=== PATIENT | female | born 1950 | race Caucasian/White ===

== ENCOUNTER 2017-06-09 09:55 | Inpatient (IN) | payer OTHER, BC ==
[~2017-06-09] VITALS: Ht 157.5 cm; Wt 71.3 kg
[~2017-06-09 09:55] MED LIST: ADCIRCA20 MG PO; ALLOPURINOL100 MG PO; AUGMENTIN500 MG PO; AUGMENTIN875 MG PO; CARAFATE100 MG/ML PO; COLACE100 MG PO; COLCRYS0.6 MG PO; COUMADIN4 MG PO; CRESTOR5 MG PO; CYANOCOBALAM1000 MCG PO; DIOVAN160 MG PO; DIOVAN80 MG PO; EXJADE500 MG PO; FISH OIL 1,2001 EAC4 PO; FLONASE ALLERG9.9 ML BOTH NARES; GLUCOPHAGE500 MG PO; GLUCOTROL10 MG PO; HYDROCHLOROTH12.5 M3 PO; HYDROCHLOROTHIA25 MG PO; JADENU360 MG PO; JADENU90 MG PO; LANTUS 10100 UNITS/ SC; LOPRESSOR25 MG PO; MARTINIC1 EACH PO; METOPROLOL SUCC25 MG PO; NEXIUM40 MG PO; OXYCODONE HCL5 MG PO; OXYCODONE5 MG PO; OXYCONTIN20 MG PO; OXYCONTIN40 MG PO; PAXIL40 MG PO; PROCRIT40000 UNI1 SC; ROCALTROL0.25 MCG PO; SYNRIBO3.5 MG SC; TASIGNA200 MG PO; TYLENOL REGULA325 MG PO; Tylenol Regular Stre PO; VALIUM5 MG PO; VITAMIN B12-FO1 EACH PO; VITAMIN D250000 UNIT PO; Zithromax PO
[2017-06-09 10:49] LABS: CHLORIDE 106 mEq/L (99-109); POTASSIUM 3.9 mEq/L (3.7-5.4); SODIUM 136 mEq/L (136-147)
[2017-06-09 10:50] LABS: GLUCOSE 174 mg/dL (70-99)
[2017-06-09 10:54] LABS: CREATININE 1.5 mg/dL (0.6-1.3); GFR ESTIMATE (CALCULATED) 37 mL/min/
[2017-06-09 10:55] LABS: BASOPHIL (%) 0.5 % (0-1); EOSINOPHIL (%) 3.1 % (0-5); EOSINOPHIL COUNT 0.1 K/uL (0-0.3); HEMATOCRIT 21.4 % (36.0-46.0); HEMOGLOBIN 7.5 G/DL (11.9-15.5); LYMPHOCYTE (%) 10.9 % (15-42); LYMPHOCYTE COUNT 0.2 K/uL (1.0-2.8); MCH 35.4 PG (29.0-34.0); MCV 100.9 FL (83-99); MONOCYTE (%) 2.6 % (3-12); MONOCYTE COUNT 0.1 K/uL (0-0.8); NEUTROPHIL (%) 81.9 % (45-76); NEUTROPHIL COUNT 1.6 K/uL (1.8-6.4); PLATELET COUNT 51 K/uL (156-360); RBC DIS.WIDTH-SD 62.6 % (39-53); RED BLOOD COUNT 2.12 M/uL (3.80-5.20); UREA NITROGEN (BUN) 31 mg/dL (9-23); WHITE BLOOD COUNT 1.9 K/uL (4.1-10.2)
[2017-06-09 10:57] LABS: TROP-I INTERPRETATION NEGATIVE; TROPONIN-I 0.02 ng/mL (0.0-0.30)
[2017-06-09 11:02] LABS: INTER. NORMALIZED RATIO 2.7; PTT 38.2 SEC (25-37)
[2017-06-09 11:24] LABS: APPEARANCE CLEAR ((CLEAR)); BILIRUBIN NEGATIVE; BLOOD SMALL; COLOR YELLOW ((YELLOW)); GLUCOSE (STRIP) NEGATIVE; KETONES NEGATIVE; LEUKOCYTES SMALL; NITRITE NEGATIVE; PROTEIN (STRIP) 100; SPECIFIC GRAVITY 1.015 (1.000-1.030); UROBILINOGEN 0.2 MG/DL (0.2-1.0)
[2017-06-09 11:34] LABS: BACTERIA RARE /HPF; EPITHELIAL CELLS 1+ /HPF; HYALINE CASTS 0-5 /LPF; MUCUS NONE SEEN /LPF; RED BLOOD CELLS NONE SEEN /HPF (0-5); UCUL ADDED? YES
[2017-06-09] MEDS ORDERED: COUMADIN2 MG PO (19:47)
[2017-06-09] MEDS ORDERED: ZOFRAN8 MG PO ×2 (19:48→19:50)
[2017-06-09] MEDS ORDERED: CATAPRES0.1 MG PO (19:50)
[2017-06-09] MEDS ORDERED: COLCRYS0.6 MG PO (19:51)
[2017-06-09] MEDS ORDERED: AZELASTINE137 MCG/0. BOTH NARES (19:51)
[2017-06-09 21:44] LABS: HEMATOCRIT 17.3 % (36.0-46.0); MCH 35.8 PG (29.0-34.0); MCHC 35.8 G/DL (30.0-36.0); RBC DIS.WIDTH-SD 62.1 % (39-53); RED BLOOD COUNT 1.73 M/uL (3.80-5.20)
[2017-06-09 21:56] VITALS: BP 190/76
[2017-06-09 22:37] LABS: HEMOGLOBIN 6.2 G/DL (11.9-15.5); WHITE BLOOD COUNT 1.2 K/uL (4.1-10.2)
[2017-06-09 22:39] VITALS: BP 159/95
[2017-06-09 23:00] VITALS: BP 182/76
[2017-06-09 23:36] LABS: IMM.PLATELET FRACTION 8.7 (1-7); PLAT.SUFFICIENCY DECREASED; PLATELET COUNT 44 K/uL (156-360)
[2017-06-10] VITALS (11 sets, daily range): BP systolic 143–202; BP diastolic 58–82
[2017-06-10 07:38] LABS: HEMATOCRIT 27.3 % (36.0-46.0); MCH 34.5 PG (29.0-34.0); MCHC 35.2 G/DL (30.0-36.0); MCV 98.2 FL (83-99); RBC DIS.WIDTH-CV 17.2 % (11.8-14.6); RBC DIS.WIDTH-SD 62.4 % (39-53)
[2017-06-10 07:40] LABS: HEMOGLOBIN 9.6 G/DL (11.9-15.5); RED BLOOD COUNT 2.78 M/uL (3.80-5.20); WHITE BLOOD COUNT 1.6 K/uL (4.1-10.2)
[2017-06-10 07:54] LABS: CHLORIDE 102 MEQ/L (99-109); CREATININE 1.3 MG/DL (0.6-1.3); GFR ESTIMATE (CALCULATED) 43 mL/min/; POTASSIUM 3.4 MEQ/L (3.7-5.4); SODIUM 140 MEQ/L (136-147); UREA NITROGEN (BUN) 23 mg/dL (9-23)
[2017-06-10 08:07] LABS: GLUCOSE 119 mg/dL (70-99)
[2017-06-10 08:21] LABS: IMM.PLATELET FRACTION 7.6 (1-7); PLAT.SUFFICIENCY VERY DECREASED; PLATELET COUNT 50 K/uL (156-360)
[2017-06-10 15:22] LABS: INTER. NORMALIZED RATIO 2.4
[2017-06-10 15:37] LABS: ALKALINE PHOSPHATASE 62 IU/L (3-129); ALT (GPT) 6 IU/L (3-49); AMYLASE 40 IU/L (1-118); AST (GOT) 14 IU/L (2-34); DIRECT BILIRUBIN 0.2 mg/dL (0.0-0.3); LIPASE 26 U/L (1.0-51.0); TOTAL BILIRUBIN 0.9 MG/DL (0.0-1.0); TOTAL PROTEIN 6.8 G/DL (6.4-8.3)
[2017-06-10 16:06] LABS: HEMOGLOBIN A1c (GLYCOHEMOGLOB) 5.2 % HGB (Below 5.7)
[2017-06-11 00:30] VITALS: BP 142/72
[2017-06-11 03:58] VITALS: BP 150/75
[2017-06-11 06:15] LABS: HEMATOCRIT 24.2 % (36.0-46.0); HEMOGLOBIN 8.4 G/DL (11.9-15.5); IMM.PLATELET FRACTION 7.6 (1-7); MCHC 34.7 G/DL (30.0-36.0); PLATELET COUNT 44 K/uL (156-360); RBC DIS.WIDTH-CV 17.1 % (11.8-14.6); RBC DIS.WIDTH-SD 61.2 % (39-53); RED BLOOD COUNT 2.47 M/uL (3.80-5.20)
[2017-06-11 06:18] LABS: WHITE BLOOD COUNT 1.1 K/uL (4.1-10.2)
[2017-06-11 06:35] LABS: INTER. NORMALIZED RATIO 1.9
[2017-06-11 06:46] LABS: CHLORIDE 106 MEQ/L (99-109); CREATININE 1.3 MG/DL (0.6-1.3); GFR ESTIMATE (CALCULATED) 43 mL/min/; GLUCOSE 129 mg/dL (70-99); POTASSIUM 4.2 MEQ/L (3.7-5.4); SODIUM 139 MEQ/L (136-147); UREA NITROGEN (BUN) 27 mg/dL (9-23)
[2017-06-11 06:57] VITALS: BP 168/60
[2017-06-11 11:15] VITALS: BP 152/70
[2017-06-11 15:20] VITALS: BP 156/62
[2017-06-11 15:22] LABS: STOOL OCCULT BLD 1ST SPECIMEN NEGATIVE
[2017-06-11 19:17] VITALS: BP 158/67
[2017-06-12 00:10] VITALS: BP 161/78
[2017-06-12 03:17] VITALS: BP 169/77
[2017-06-12 07:55] VITALS: BP 164/60
[2017-06-12 08:01] LABS: HEMATOCRIT 23.7 % (36.0-46.0); HEMOGLOBIN 8.2 G/DL (11.9-15.5); MCH 33.3 PG (29.0-34.0); MCHC 34.6 G/DL (30.0-36.0); MCV 96.3 FL (83-99); RBC DIS.WIDTH-CV 16.4 % (11.8-14.6); RBC DIS.WIDTH-SD 57.8 % (39-53); RED BLOOD COUNT 2.46 M/uL (3.80-5.20)
[2017-06-12 08:05] LABS: WHITE BLOOD COUNT 1.1 K/uL (4.1-10.2)
[2017-06-12 08:11] LABS: CHLORIDE 104 MEQ/L (99-109); CREATININE 1.2 MG/DL (0.6-1.3); GFR ESTIMATE (CALCULATED) 48 mL/min/; GLUCOSE 147 mg/dL (70-99); POTASSIUM 4.4 MEQ/L (3.7-5.4); SODIUM 139 MEQ/L (136-147); UREA NITROGEN (BUN) 27 mg/dL (9-23)
[2017-06-12 08:17] LABS: BASOPHIL (%) 0 % (0-1); EOSINOPHIL (%) 2.8 % (0-5); IMMATURE GRANULOCYTE (%) 0.9 % (0.0-0.7); LYMPHOCYTE (%) 28.4 % (15-42); LYMPHOCYTE COUNT 0.3 K/uL (1.0-2.8); MONOCYTE (%) 3.7 % (3-12); NEUTROPHIL (%) 64.2 % (45-76); NEUTROPHIL COUNT 0.7 K/uL (1.8-6.4); PLAT.SUFFICIENCY DECREASED; PLATELET COUNT 51 K/uL (156-360)
[2017-06-12 08:51] LABS: INTER. NORMALIZED RATIO 1.9
[2017-06-12] MEDS ORDERED: OSELTAMIVIR PHO30 MG PO (11:52)
== END 2017-06-12 14:25 | disposition home or self-care (01) | DRG 193 ==
LOC: EME 09:55 → EDOF 18:44 → 2EASTP 18:44 → ENRESERV 18:49 → 2EASTP 21:41
PROVIDERS: Emergency Medicine; Family Medicine; Hospitalist
PROC: 30233N1 Transfusion of Nonautologous Red Blood Cells into Peripheral Vein, Percutaneous Approach (ICD-10-PCS; principal; 2017-06-10)
DX: J10.1 Influenza due to other identified influenza virus with other respiratory manifestations (principal); R16.2 Hepatomegaly with splenomegaly, not elsewhere classified; D61.810 Antineoplastic chemotherapy induced pancytopenia; R18.8 Other ascites; E11.22 Type 2 diabetes mellitus with diabetic chronic kidney disease; C92.10 Chronic myeloid leukemia, BCR/ABL-positive, not having achieved remission; I27.20 Pulmonary hypertension, unspecified; D70.9 Neutropenia, unspecified; I12.9 Hypertensive chronic kidney disease with stage 1 through stage 4 chronic kidney disease, or unspecified chronic kidney disease; R01.1 Cardiac murmur, unspecified; I25.10 Atherosclerotic heart disease of native coronary artery without angina pectoris; Z96.643 Presence of artificial hip joint, bilateral; N18.3 Chronic kidney disease, stage 3 (moderate); K21.9 Gastro-esophageal reflux disease without esophagitis; F32.9 Major depressive disorder, single episode, unspecified; T45.1X5A Adverse effect of antineoplastic and immunosuppressive drugs, initial encounter; D64.9 Anemia, unspecified; K59.00 Constipation, unspecified; E78.5 Hyperlipidemia, unspecified; M87.9 Osteonecrosis, unspecified; F41.9 Anxiety disorder, unspecified; N20.0 Calculus of kidney; G89.29 Other chronic pain; R59.0 Localized enlarged lymph nodes; E53.8 Deficiency of other specified B group vitamins; Z86.711 Personal history of pulmonary embolism; Z90.49 Acquired absence of other specified parts of digestive tract; Z95.5 Presence of coronary angioplasty implant and graft; Z79.01 Long term (current) use of anticoagulants; Z87.442 Personal history of urinary calculi; Z90.710 Acquired absence of both cervix and uterus; Z92.21 Personal history of antineoplastic chemotherapy; Z80.8 Family history of malignant neoplasm of other organs or systems; Z83.3 Family history of diabetes mellitus; Z90.721 Acquired absence of ovaries, unilateral
CPT/HCPCS: 36415; 71046; 71100; 74176; 80048; 80053; 80076; 81003; 82150; 82272; 82728; 82948; 83036; 83605; 83690; 84484; 85025; 85027; 85610; 85730; 86850; 86870; 86900; 86901; 86920; 86999; 87040; 87086; 87502; 93005; 99281; 99285; J0696; J1200; J1815; J1940; J2270; J2405; J7030; P9016